=== PATIENT | male | born 1935 | race Caucasian/White ===

== ENCOUNTER 2023-12-09 20:44 | Emergency (ER) | payer MEDICARE, OTHER, SELFPAY ==
[2023-12-09 20:47] VITALS: BP 195/93
--- NOTE | 2023-12-09 21:38 | ED.GENMED ---
History of Present Illness
General
Chief Complaint: Skin Problem
Source: patient and spouse
Time Seen by Provider: 12/09/23 21:18
History of Present Illness
History of Present Illness:
88-year-old male who takes Coumadin states he suffered a skin tear to left elbow area about a week ago. Bleeding was well-controlled until tonight when he accidentally banged his arm while being pulled by the dog. He ports continued bleeding which
prompted his visit here. He denies other complaints or bleeding elsewhere.
Past History
Past History
ED Past Medical History: CVA, HTN and Other (Migraines, sciatica, left bundle branch block, sick sinus syndrome, diverticulosis, cataracts, glaucoma, skin cancer)
ED Past Surgical History: Cardiac (Pacemaker), Cholecystectomy and Orthopedic
Social History
Tobacco: Non-smoker
Alcohol: None
Drug: None
Personal:
Living: with family
Phy Exam
Physical Exam
Physical Exam:
GENERAL: Alert , in no apparent distress, pleasant, nontoxic
NECK: Supple
ENT: o/p clr, mmm.
CARDIAC: Regular rate and rhythm .
LUNGS: Clear breath sounds bilaterally, no acute respiratory distress, no wheezes/rales/rhonchi
NEUROLOGICAL: Alert and oriented, no focal neuro deficits
SKIN: Warm and dry, skin intact except for superficial skin tear x 2 at the left elbow region without associated redness, warmth, bony tenderness, deformity, etc..
MUSCULOSKELETAL: No edema, well perfused.
PSYCH: Normal and appropriate interaction.
Course
Vital Signs
Initial and Last Documented VS:
Initial Vital Signs
Temp Pulse Resp BP Pulse Ox
98.2 F 86 16 195/93 98
12/09/23 20:47 12/09/23 20:47 12/09/23 20:47 12/09/23 20:47 12/09/23 20:47
Last Documented Vital Signs
Temp Pulse Resp BP Pulse Ox
98.2 F 86 16 195/93 98
12/09/23 20:47 12/09/23 20:47 12/09/23 20:47 12/09/23 20:47 12/09/23 20:47
*Critical Care Note
Total Time (30-74mins, 75-104mins- exclusive of procedures): Not Applicable
Update Note
Update Note:
Patient presents to the Emergency Department with bleeding from skin tear
Number and Complexity of Problems Addressed at the Encounter
� Chronic conditions affecting care:
� Acute Exacerbation and/or Progression of Chronic Illness:
� Differential Diagnosis includes: But not limited to laceration, abrasion, skin tear, etc.
Amount and/or Complexity of Data to be Reviewed and Analyzed
� I performed an independent evaluation of and my interpretation is:
EKG:
CT:
Xrays:
Laboratory Studies:
Other:
� Review of other/old records reveals:
� Clinical information was obtained by an independent historian:
� Prescriptions/Medications Considered but not given:
� Further testing considered but not performed:
Risk of Complications and/or Morbidity or Mortality of Patient Management
� Social determinants of health affecting care:
� Discussion with other providers (PCP, Hospitalists, Consultants, etc):
� Escalation of care including admission/observation vs risk of discharge considered: Area was carefully approximated with Steri-Strips and then dressed with a nonadherent dressing followed by gauze and wrapped with Kerlix.
Discussed with patient and importance of follow-up and reasons to return to the ER
ED Attending Note
-
Portions of this chart may have been created with voice recognition software.� Occasional wrong word or��sound alike� substitutions may have occurred due to the inherent limitations of voice recognition software.
Discharge Plan
Departure
Disposition: Home (Routine Discharge)
Date of Disposition: 12/09/23
Time of Disposition: 21:41
Patient with high blood pressure during this ER visit?: Yes
Condition: Good
Discharge Problem:
Skin tear
Instructions: Wound Care ED, BLOOD PRESSURE
Prescriptions:
No Action
finasteride 5 MG tablet
5 mg PO DAILY Qty: 5 0RF
ibuprofen [Advil Liqui-Gel] 200 MG capsule
200 mg PO HS
acetazolamide 250 MG tablet
250 mg PO HS
acetaminophen [Tylenol Extra Strength] 500 MG tablet
1,000 mg PO HSPRN PRN (Reason: pain)
gabapentin 100 MG capsule
200 mg PO HS
timolol maleate 1 DROP drops
1 drp OPHTHALMIC BID
alfuzosin 10 MG tablet extended release 24 hr
10 mg PO DAILY
carvedilol 6.25 mg Tablet
6.25 mg PO BID
atorvastatin 20 mg Tablet
20 mg PO DAILY
travoprost [Travatan Z] 0.004 % Drops
1 drp OPHTHALMIC (EYE) QPM
clopidogrel 75 mg Tablet
75 mg PO DAILY
fluticasone propionate [Flonase] 50 mcg/actuation [place],Suspension
2 spray INTRANASAL DAILY
loratadine [Claritin] 10 mg Tablet
10 mg PO DAILY
Centrum Silver Tablet
1 tab PO DAILY
Ocuvite Tablet
1 tab PO DAILY
dorzolamide 2 % Drops
1 drp OPHTHALMIC (EYE) NOON
Additional Instructions:
PLEASE KEEP THE AREA DRY AND COVERED UNTIL FULLY HEALED. IF YOU DEVELOP FEVER, CHILLS, DRAINAGE, BLEEDING, OR OTHER WORRISOME SIGNS, PLEASE RETURN TO THE ER IMMEDIATELY
Discharge Date and Time
Print Language: MONEGASQUE
[2023-12-09 21:39] VITALS: BP 157/69
== END 2023-12-09 21:52 | disposition home or self-care (01) ==
LOC: EMR 20:44
PROVIDERS: EMERGENCY PHYSICIAN Emergency Medicine; FAMILY PHYSICIAN Family Medicine
DX: S51.012A Laceration without foreign body of left elbow, initial encounter (principal); X58.XXXA Exposure to other specified factors, initial encounter; I10 Essential (primary) hypertension; Z85.828 Personal history of other malignant neoplasm of skin; Z86.73 Personal history of transient ischemic attack (TIA), and cerebral infarction without residual deficits; Z90.49 Acquired absence of other specified parts of digestive tract; Z95.0 Presence of cardiac pacemaker
CPT/HCPCS: 99282

== ENCOUNTER → 2024-11-07 14:44 | Outpatient (REF) | payer MEDICARE, OTHER, SELFPAY | LOC: HWRAD 14:44 | PROVIDERS: ATTENDING PHYSICIAN Family Medicine; FAMILY PHYSICIAN Family Medicine | DX: R10.31 Right lower quadrant pain (principal); R22.42 Localized swelling, mass and lump, left lower limb | CPT/HCPCS: 76882 ==